=== PATIENT | female | born 1950 | race Caucasian/White ===

== ENCOUNTER 2017-09-25 11:57 | Day surgery (SDC) | payer MEDICARE ==
[2017-09-25] MEDS ORDERED: LACTATED RINGERS 1,000 ML IV ONE (12:20)
[2017-09-25] MEDS ORDERED: MIDAZOLAM 2 MG/2 ML VIAL IVP ONE (13:17)
[2017-09-25] MEDS ORDERED: fentaNYL 250 MCG/5 ML VIAL IVP ONE (13:17)
[2017-09-25 14:18] VITALS: BP 91/59
== END 2017-09-25 11:58 | disposition home or self-care (01) ==
LOC: SDS 11:57
PROVIDERS: ATTEND Surgery
PROC: 0DBL8ZZ Excision of Transverse Colon, Via Natural or Artificial Opening Endoscopic (ICD-10-PCS; 2017-09-25)
PROC: 0DBC8ZZ Excision of Ileocecal Valve, Via Natural or Artificial Opening Endoscopic (ICD-10-PCS; principal; 2017-09-25 13:00)
DX: Z12.11 Encounter for screening for malignant neoplasm of colon (principal); D12.0 Benign neoplasm of cecum; D12.3 Benign neoplasm of transverse colon; K63.89 Other specified diseases of intestine; K57.30 Diverticulosis of large intestine without perforation or abscess without bleeding; K64.8 Other hemorrhoids; I10 Essential (primary) hypertension
CPT/HCPCS: 45380; J3010; J7120

== ENCOUNTER 2018-03-07 16:15 | Outpatient (CLI) | payer MEDICARE ==
--- NOTE | 2018-03-08 08:11 | Mammography Report ---
Reason: SCREENING MAMMO Procedure Date: 03/07/2018 Accession Number: [id number] / [id number] Procedure: KATHY - Screening Mammo w/Charles CPT Code: FULL RESULT: EXAM: Screening Mammo w/Charles DATE: 03/07/2018 4:54 PM CLINICAL HISTORY: Screening encounter. History of 10 years of hormone replacement therapy. History of breast cyst aspiration approximately 30 years prior. TECHNIQUE: Bilateral CC, laterally exaggerated CC, MLO views were obtained. COMPARISON: 10/07/2014 through 06/06/2012. FINDINGS: The breasts demonstrate heterogeneously dense fibroglandular parenchyma bilaterally. There are coarse typically benign calcifications. No suspicious masses, clustered microcalcifications, or regions of architectural distortion are identified. IMPRESSION: Benign findings RECOMMENDATION: Routine annual screening unless otherwise clinically indicated. BIRADS CATEGORY 2: Benign findings STANDARD QUALIFYING STATEMENTS: 1. This examination was not reviewed with the aid of Computer-Aided Detection (CAD). 2. A negative or benign imaging report should not preclude biopsy if clinically suspicious findings are present. 3. Dense breasts may obscure an underlying neoplasm. 4. This examination was reviewed with the aid of 3D breast imaging (tomosynthesis).
== END 2018-03-07 16:16 | disposition home or self-care (01) ==
LOC: DI 16:15
DX: Z12.31 Encounter for screening mammogram for malignant neoplasm of breast (principal)
CPT/HCPCS: 77063; 77067

== ENCOUNTER 2019-03-18 08:01 | Outpatient (CLI) | payer MEDICARE ==
[2019-03-18 08:29] LABS: BASOPHILS # (AUTO) 0.1 10^3/uL (0.0-0.1); BASOPHILS % (AUTO) 1.3 %; EOSINOPHILS # (AUTO) 0.1 10^3/uL (0.0-0.7); EOSINOPHILS % (AUTO) 2.4 %; HGB - HEMOGLOBIN 15.2 g/dL (12.0-16.0); LYMPHOCYTES # (AUTO) 1.7 10^3/uL (1.5-3.5); LYMPHOCYTES % (AUTO) 37.9 %; MEAN CORPUSCULAR HEMOGLOBIN 32.1 pg (27.0-31.0); MEAN CORPUSCULAR HGB CONC 34.2 g/dL (32.0-36.0); MEAN CORPUSCULAR VOLUME 93.9 fL (81.0-99.0); MEAN PLATELET VOLUME 9.4 fL (7.9-10.8); MONOCYTES # (AUTO) 0.4 10^3/uL (0.0-1.0); MONOCYTES % (AUTO) 8.5 %; NEUTROPHILS # (AUTO) 2.3 10^3/uL (1.5-6.6); NEUTROPHILS % (AUTO) 49.5 %; PLT - PLATELET COUNT 194 10^3/uL (130-450); RED BLOOD COUNT 4.73 10^6/uL (4.20-5.40); RED CELL DISTRIBUTION WIDTH 13.3 % (12.0-15.0); WHITE BLOOD COUNT 4.6 x10^3/uL (4.8-10.8)
[2019-03-18 09:04] LABS: ALBUMIN 4.5 g/dL (3.2-5.5); ALBUMIN/GLOBULIN RATIO 1.5 (1.0-2.2); ALKALINE PHOSPHATASE 55 IU/L (42-121); ALT ALANINE AMINOTRANSFERASE 18 IU/L (10-60); AST ASPARTATE AMINOTRANSFERASE 25 IU/L (10-42); BILIRUBIN,TOTAL 0.9 mg/dL (0.2-1.0); BUN - BLOOD UREA NITROGEN 12 mg/dL (6-20); CARBON DIOXIDE - CO2 26 mmol/L (21-32); CHLORIDE 100 mmol/L (101-111); CHOL/HDL RATIO 1.9 (<4.4); CHOLESTEROL 210 mg/dL; CREATININE 0.5 mg/dL (0.4-1.0); GFR - MDRD 122 (>89); GLUCOSE 88 mg/dL (70-100); HDL CHOLESTEROL 108 mg/dL; LDL CHOLESTEROL,CALCULATED 89 mg/dL; LDL/HDL RATIO 0.8 (<4.4); SODIUM 137 mmol/L (135-145); TOTAL PROTEIN 7.6 g/dL (6.7-8.2); VLDL CHOLESTEROL 13 mg/dL
[2019-03-18 09:12] LABS: T4 (THYROXINE) 3.8 ug/dL (6.09-12.23)
[2019-03-18 09:15] LABS: THYROID STIMULATING HORMONE 1.84 uIU/mL (0.34-5.60)
[2019-03-18 09:19] LABS: FREE T4 (FREE THYROXINE) 0.67 ng/dL (0.58-1.64)
== END 2019-03-18 08:02 | disposition home or self-care (01) ==
LOC: LAB 08:01
PROVIDERS: ATTEND Naturopath
DX: E03.9 Hypothyroidism, unspecified (principal); I10 Essential (primary) hypertension
CPT/HCPCS: 36415; 80053; 80061; 81599; 83721; 84436; 84439; 84443; 84479; 85025; 86376

== ENCOUNTER 2021-06-14 16:01 | Emergency (ER) | payer MEDICARE ==
[2021-06-14] MEDS ORDERED: diltiaZEM INJ 5 MG/ML VIAL IVP STA ×2 (16:22→17:12)
--- NOTE | 2021-06-14 16:24 | ED Physician Documentation ---
History of Present Illness - Stated complaint Stated Complaint: ABN HEARTBEAT - Chief complaint Chief Complaint: Cardiac - Additonal information Additional information: 71-year-old female presents emergency department on referral from a local walk- in clinic for evaluation of atrial for both a rapid rate. Patient had gone to the [facility]-in [facility] to establish care. While there they noted she had a heart rate of 124 results and EKG showed atrial flutter with 2 1 conduction. On presentation to the emergency department now she is in atrial fibrillation with a heart rate in the 120s. She is denying chest pain or shortness of air. No syncope or feeling lightheaded. Patient incidentally reports that about 1 month ago after the loss of an aunt and her sister she began having palpitations. She did go to her supervisor [employer] who felt that she had broken heart syndrome and her heart rate was always normal in the office. She has intermittently however continue to have palpitations. Review of Systems Constitutional: reports: Reviewed and negative Ears: reports: Reviewed and negative Nose: reports: Reviewed and negative Throat: reports: Reviewed and negative Cardiac: reports: Palpitations Respiratory: reports: Reviewed and negative GI: reports: Reviewed and negative : reports: Reviewed and negative Skin: reports: Reviewed and negative Musculoskeletal: reports: Reviewed and negative PD PAST MEDICAL HISTORY - Past Medical History Cardiovascular: Hypertension Respiratory: None Endocrine/Autoimmune: HyPOthyroidism GI: None : None HEENT: Chronic vision loss Psych: None Derm: None - Past Surgical History Ortho: Hip replacement HEENT: Tonsil/Adenoidectomy - Present Medications Home Medications: Ambulatory Orders Medication Instructions Recorded Confirmed Astaxanthin 4 mg PO DAILY 09/25/17 09/25/17 Cholecalciferol (Vitamin D3) 1,000 unit PO DAILY 09/25/17 09/25/17 [Vitamin D3] Glucosamine/Chondroitin/C/Rivas 1 each PO DAILY 09/25/17 09/25/17 [Glucosamine-Chondroitin Capsul] Melatonin 10 mg PO DAILY PM 09/25/17 09/25/17 Mv-Mn/Folic Acid/Lutein/Vkm710 1 each PO DAILY 09/25/17 09/25/17 [Efrain Multi For Men Tablet] [place]-3/Dha/Epa/Fish Oil [Fish Oil 1 each PO DAILY 09/25/17 09/25/17 1,000 mg Softgel] Selenimin Tablet 1 tab PO DAILY 09/25/17 Thyroid,Pork [Nature-Throid] 32.5 mg PO DAILY 09/25/17 09/25/17 Ubidecarenone [Co Q-10] 100 mg PO DAILY 09/25/17 09/25/17 Vitamin B Complex 1 each PO DAILY 09/25/17 09/25/17 Vitamin E 200 unit PO DAILY 09/25/17 09/25/17 Rivaroxaban [Xarelto] 20 mg PO DAILY #30 tablet 06/14/21 diltiaZEM CD [Cardizem Cd] 120 mg PO DAILY #30 cap 06/14/21 - Allergies Allergies/Adverse Reactions: Allergies Allergy/AdvReac Type Severity Reaction Status Date / Time Penicillins Allergy Anaphylaxis Verified 06/14/21 16:17 Sulfa (Sulfonamide Allergy Anaphylaxis Verified 06/14/21 16:17 Antibiotics) PD ED PE NORMAL - General General: Alert and oriented X 3, No acute distress, Well developed/nourished - HEENT HEENT: Atraumatic, Ears normal, Moist mucous membranes, Pharynx benign - Neck Neck: Supple, no meningeal sign, No adenopathy, Thyroid normal - Cardiac Cardiac: No murmur, Strong equal pulses. No: RRR (Tachycardic irregularly irregular) - Respiratory Respiratory: No respiratory distress - Abdomen Abdomen: Normal bowel sounds, Soft, Non tender - Back Back: No CVA TTP, No spinal TTP - Derm Derm: Normal color, Warm and dry, No rash - Extremities Extremities: No deformity, No tenderness to palpate, Normal ROM s pain - Neuro Neuro: Alert and oriented X 3, peoplesoft 2-12 intact Eye Opening: To Voice Motor: Obeys Commands Verbal: Oriented GCS Score: 14 - Psych Psych: Normal mood Results - Vitals Vitals: Vital Signs - 24 hr 06/14/21 06/14/21 06/14/21 16:14 16:26 16:53 Temperature 36.6 C Heart Rate 123 H 124 H 119 H Respiratory 33 H 11 L 21 Rate Blood Pressure 158/95 H 158/95 H 131/90 H O2 Saturation 99 98 97 06/14/21 06/14/21 06/14/21 17:48 18:28 18:43 Temperature Heart Rate 106 H 114 H 127 H Respiratory 21 28 H 11 L Rate Blood Pressure 112/80 110/70 103/77 O2 Saturation 96 97 96 06/14/21 06/14/21 19:00 19:27 Temperature 36.6 C Heart Rate 98 98 Respiratory 17 17 Rate Blood Pressure 118/79 118/79 O2 Saturation 97 98 Oxygen O2 Source Room air - EKG (time done) 1612 Rate: Rate (enter#) (123) Rhythm: Atrial fibrillation QRS: Normal Ischemia: ST elevation c/w repol Compare to prior EKG: Old EKG unavailable Computer interpretation: Agree with computer - Labs Labs: Laboratory Tests 06/14/21 06/14/21 06/14/21 16:24 16:24 16:24 WBC 11.2 H RBC 4.26 Hgb 13.6 Hct 40.6 MCV 95.3 MCH 31.9 H MCHC 33.5 RDW 12.0 Plt Count 366 MPV 9.0 Neut # (Auto) 8.1 H Lymph # (Auto) 2.0 Rogers # (Auto) 1.0 Eos # (Auto) 0.0 Baso # (Auto) 0.1 Absolute Nucleated RBC 0.00 Nucleated RBC % 0.0 PT 12.8 H INR 1.2 Sodium 134 L Potassium 4.0 Chloride 96 L Carbon Dioxide 25 Anion Gap 13.0 BUN 10 Creatinine 0.6 Estimated GFR (MDRD) 99 Glucose 110 H Calcium 9.0 Total Bilirubin 0.8 AST 17 ALT 15 Alkaline Phosphatase 73 Troponin I High Sens B-Natriuretic Peptide Total Protein 7.8 Albumin 3.8 Globulin 4.0 Albumin/Globulin Ratio 1.0 Lipase 29 TSH Free T4 06/14/21 06/14/21 06/14/21 16:24 16:24 16:24 WBC RBC Hgb Hct MCV MCH MCHC RDW Plt Count MPV Neut # (Auto) Lymph # (Auto) Rogers # (Auto) Eos # (Auto) Baso # (Auto) Absolute Nucleated RBC Nucleated RBC % PT INR Sodium Potassium Chloride Carbon Dioxide Anion Gap BUN Creatinine Estimated GFR (MDRD) Glucose Calcium Total Bilirubin AST ALT Alkaline Phosphatase Troponin I High Sens 6.5 B-Natriuretic Peptide 481 H Total Protein Albumin Globulin Albumin/Globulin Ratio Lipase TSH 1.66 Free T4 0.94 - Rads (name of study) CXR Radiology: Final report received (Small left pleural effusion and left basilar atelectasis. No pneumothorax) PD MEDICAL DECISION MAKING - ED course Complexity details: reviewed old records, reviewed results, re-evaluated patient, considered differential, d/w patient ED course: 71-year-old female was referred to the emergency department from walk-in clinic for evaluation of tachycardia and findings of atrial fib and atrial flutter. On presentation she is awake well-appearing normotensive. She has atrial for been rate of 120s. She is initially given 10 mg of IV Diltiazem. This briefly dropped her heart rate into the 1 teens. It was then repeated with again a modest reduction to the 1 teens. We then followed up with 5 mg of metoprolol IV. However she was subsequently given 120 orally of diltiazem long-acting. Following this administration her heart rate is consistently in the 90s and low 100s. She has no chest pain. Chest x-ray does show a small left pleural effusion. Her troponin is negative but we do have a modest BNP elevation just over 400. Patient is not dyspneic or hypoxic. No lower extremity swelling. Chest x-ray is not suggestive of volume overload. She does have a CHADS2 score of 3 therefore she would benefit from anticoagulation to reduce the risk of stroke and is given her initial dose of Xarelto here. Did spend a fair amount of time at the bedside discussing the new diagnosis of atrial fibrillation with an elevated BNP, stroke risk reduction and long-term management to include referral to cardiology. Emergent return precautions were discussed for strokelike symptoms, sudden severe chest pain or shortness of air - Critical Care Time(min): 15 Time Includes: Direct patient care, Review records, Family consult for tx dec Data interpretation: Labs, Prior EKG Departure - Departure Disposition: 01 Home, Self Care Clinical Impression: Atrial fibrillation with RVR, Elevated brain natriuretic peptide (BNP) level, Pleural effusion, left Condition: Stable Record reviewed to determine appropriate education?: Yes Instructions: Rivaroxaban oral tablets, Atrial Fibrillation Dc Prescriptions: diltiaZEM CD [Cardizem Cd] 120 mg PO DAILY #30 cap Rivaroxaban [Xarelto] 20 mg PO DAILY #30 tablet Comments: Jennifer you are seen today in the emergency department for atrial fibrillation. It sounds like you have been having it intermittently for much of the last month. Here in the emergency department we gave you multiple IV medications followed by an oral dose of Cardizem in order to get good heart rate control and we seem to have done that. Your chest x-ray does show a small left-sided pleural effusion. Your BNP is mildly elevated at just over 400. This is likely because of the uncontrolled atrial fibrillation over the last month. As we discussed at the bedside the biggest risk for atrial fibrillation is stroke. You are at moderate to high risk for stroke therefore we are making the recommendation that you begin taking the Xarelto every day as prescribed. Your first dose was given here in the emergency department. In order to control your heart rate we have also sent a prescription to the pharmacy for diltiazem. This is a medication that is long-acting and you will take once daily. Xarelto is a medication that helps prevent clots from forming however if you develop any falls, have sudden severe headache, black or bloody stools or uncontrolled bleeding you do need to return to the emergency department for evaluation. If you develop slurred speech, facial droop arm or leg weakness or any other concerning signs such as for stroke then again please return immediately to the ER. Please discuss this ED visit with your primary care provider. You should obtain referral to a earth burner for further outpatient testing and evaluation which could include echocardiogram or stress testing. Discharge Date/Time: 06/14/21 19:27
--- NOTE | 2021-06-14 16:30 | XRAY Report ---
PROCEDURE: Chest 1 View X-Ray INDICATIONS: Chest Pain TECHNIQUE: One view of the chest was acquired. COMPARISON: None. FINDINGS: Surgical changes and devices: None. Lungs and pleura: Small left pleural effusion is seen. Left basilar atelectasis is noted. Right lung is clear. No pneumothorax. Mediastinum: Mediastinal contours appear normal. Heart size is normal. Bones and chest wall: No suspicious bony lesions. Overlying soft tissues appear unremarkable. IMPRESSION: Small left pleural effusion and left basilar atelectasis. No pneumothorax. Reviewed by: Magdaleno Jay MD on 06/14/2021 4:29 PM PDT Approved by: Magdaleno Jay MD on 06/14/2021 4:29 PM PDT Station ID: [id number]
[2021-06-14 16:34] LABS: BASOPHILS # (AUTO) 0.1 10^3/uL (0.0-0.1); BASOPHILS % (AUTO) 0.5 %; EOSINOPHILS % (AUTO) 0.2 %; HCT - HEMATOCRIT 40.6 % (37.0-47.0); HGB - HEMOGLOBIN 13.6 g/dL (12.0-16.0); LYMPHOCYTES % (AUTO) 17.8 %; MEAN CORPUSCULAR HEMOGLOBIN 31.9 pg (27.0-31.0); MEAN CORPUSCULAR HGB CONC 33.5 g/dL (32.0-36.0); MEAN CORPUSCULAR VOLUME 95.3 fL (81.0-99.0); MONOCYTES % (AUTO) 8.9 %; NEUTROPHILS # (AUTO) 8.1 10^3/uL (1.5-6.6); NEUTROPHILS % (AUTO) 72.1 %; PLT - PLATELET COUNT 366 10^3/uL (130-450); RED BLOOD COUNT 4.26 10^6/uL (4.20-5.40); WHITE BLOOD COUNT 11.2 x10^3/uL (4.8-10.8)
[2021-06-14 16:36] LABS: INR 1.2 (0.8-1.2); PT - PROTHROMBIN TIME 12.8 secs (9.9-12.6)
[2021-06-14 16:55] LABS: ALBUMIN 3.8 g/dL (3.2-5.5); BILIRUBIN,TOTAL 0.8 mg/dL (0.2-1.0); CREATININE 0.6 mg/dL (0.4-1.0); TOTAL PROTEIN 7.8 g/dL (6.7-8.2)
[2021-06-14 17:14] LABS: THYROID STIMULATING HORMONE 1.66 uIU/mL (0.34-5.60)
[2021-06-14 17:16] LABS: FREE T4 (FREE THYROXINE) 0.94 ng/dL (0.58-1.64)
[2021-06-14] MEDS ORDERED: METOPROLOL 5 MG/5 ML VIAL IVP STA (18:00)
[2021-06-14] MEDS ORDERED: diltiaZEM CD 120 MG CAPSULE PO STA (18:27)
[2021-06-14] MEDS ORDERED: RIVAROXABAN 15 MG TABLET PO STA (18:31)
[2021-06-14 19:05] VITALS: BP 118/79
== END 2021-06-14 19:27 | disposition home or self-care (01) ==
LOC: ED 16:01
DX: I48.20 Chronic atrial fibrillation, unspecified (principal); R79.89 Other specified abnormal findings of blood chemistry; I10 Essential (primary) hypertension
CPT/HCPCS: 36415; 71045; 80053; 83690; 83880; 84439; 84443; 84484; 85025; 85610; 93005; 96374; 96375; 96376; 99283; 99284; A9270

== ENCOUNTER 2021-07-08 08:00 | Outpatient (CLI) | payer MEDICARE ==
--- NOTE | 2021-07-08 14:22 | XRAY Report ---
PROCEDURE: Chest 2 View X-Ray INDICATIONS: PLEURAL EFFUSION TECHNIQUE: 2 view(s) of the chest. COMPARISON: Single view the chest dated 06/14/2021 FINDINGS: Surgical changes and devices: None. Lungs and pleura: There is a decreased left pleural effusion when compared with the prior study keya ed 06/14/2021. There is trace one thing at the left costophrenic sulcus. There is likely a small right pleural effusion which is new when compared with the prior study. Mediastinum: Mediastinal contours are normal. Heart size is normal. Bones and chest wall: No suspicious bony abnormalities. Soft tissues appear unremarkable. IMPRESSION: 1. Marked decrease in the size of the left pleural effusion. 2. Trace right pleural effusion which is likely new. Reviewed by: Sari Tejeda MD on 07/08/2021 2:20 PM PDT Approved by: Sari Tejeda MD on 07/08/2021 2:20 PM PDT Station ID: [id number]
== END 2021-07-08 23:59 | disposition home or self-care (01) ==
LOC: DI.S 08:00
PROVIDERS: ATTEND Registered Nurse
DX: J90 Pleural effusion, not elsewhere classified (principal)

== ENCOUNTER 2023-04-27 07:22 | Day surgery (SDC) | payer MEDICARE ==
[2023-04-27] MEDS: LACTATED RINGERS 1,000 ML IV ONE (08:09)
[2023-04-27] MEDS ORDERED: BRIMONIDINE 0.2% OPHTH DROPS 5 ML ONE (08:19)
[2023-04-27] MEDS ORDERED: EPINEPHrine 1 MG/ML AMP ONE (08:19)
[2023-04-27] MEDS ORDERED: TIMOLOL 0.5% OPHTH DROPS ONE (08:19)
[2023-04-27] MEDS ORDERED: TRIAMCIN/MOXIFLOX OPHTHALMIC 0.6 ML VIAL IO ONE (08:19)
[2023-04-27] MEDS ORDERED: BSS/LIDOCAINE/EPINEPHRINE 1 ML VIAL ONE (08:20)
--- NOTE | 2023-04-27 08:26 | ANESTHESIA ---
Pre-Anesthesia VS, & Labs - Diagnosis left eye senile combined cataract - Procedure left eye cataract extraction with IOL implant Vital Signs: Temp Pulse Resp BP Pulse Ox O2 Flow Rate 36.4 C L 70 12 124/71 100 04/27/23 07:49 04/27/23 07:49 04/27/23 07:49 04/27/23 07:49 04/27/23 07:49 Height: 5 ft 5 in Weight (kg): 73 kg Body Mass Index: 26.7 BMI Classification: Overweight - NPO >8 hours - Is Patient ?: No Home Medications and Allergies Astaxanthin 4 mg PO DAILY 09/25/17 Cholecalciferol (Vitamin D3) [Vitamin D3] 1,000 unit PO DAILY 09/25/17 Glucosamine/Chondroitin/C/Rivas [Glucosamine-Chondroitin Capsul] 1 each PO DAILY 09/25/17 Melatonin 10 mg PO DAILY PM 09/25/17 Mv-Mn/Folic Acid/Lutein/Vhs019 [Efrain Multi For Men Tablet] 1 each PO DAILY 09/25/17 [place]-3/Dha/Epa/Fish Oil [Fish Oil 1,000 mg Softgel] 1 each PO DAILY 09/25/17 Selenimin Tablet 1 tab PO DAILY 09/25/17 Thyroid,Pork [Nature-Throid] 32.5 mg PO DAILY 09/25/17 Vitamin B Complex 1 each PO DAILY 09/25/17 Vitamin E 200 unit PO DAILY 09/25/17 Aspirin [[place]] 81 mg PO DAILY 04/12/23 Metoprolol Tartrate [Lopressor] 12 mg PO DAILY 04/12/23 Allergies/Adverse Reactions: Allergies Allergy/AdvReac Type Severity Reaction Status Date / Time Penicillins Allergy Anaphylaxis Verified 06/14/21 16:17 Sulfa (Sulfonamide Allergy Anaphylaxis Verified 06/14/21 16:17 Antibiotics) Anes History & Medical History - Anesthetic History Anesthesia Complications: reports: No previous complications - Medical History Cardiovascular: reports: Hypertension, Atrial fibrillation (history of, currently SR) Pulmonary: reports: None Gastrointestinal: reports: None Urinary: reports: None Neuro: reports: None Endocrine/Autoimmune: reports: HyPOthyroidism Skin: reports: None Smoking Status: Never smoker Psychosocial: reports: Alcohol (daily 2 glasses) History of Cancer?: No - Surgical History Eyes Ears Nose Throat (EENT): reports: Tonsil/Adenoidectomy Orthopedic: reports: Hip replacement Exam General: Alert, Oriented x3, Cooperative, No acute distress Dental: WNL Mouth Openin Fingerbreadth Neck Mobility: Normal Mallampati classification: II Thyromental Distance: less than 4 cm Mental/Cognitive Status: Alert/Oriented X3, Normal for patient Plan Anesthesia Type: MAC Consent for Procedure(s) Verified and Reviewed: Yes Code Status: Attempt Resuscitation ASA classification: 2-Mild systemic disease Is this case an emergency?: No
[2023-04-27] MEDS: BRIMONIDINE 0.2% OPHTH DROPS 5 ML OPTH ONE (09:00)
[2023-04-27] MEDS: EPINEPHrine 1 MG/ML AMP IR ONE (09:01)
[2023-04-27] MEDS: BSS/LIDOCAINE/EPINEPHRINE 1 ML SYRINGE IO ONE (09:01)
[2023-04-27] MEDS: TIMOLOL 0.5% OPHTH DROPS OPTH ONE (09:01)
[2023-04-27] MEDS: PROPARACAINE 0.5% OPHTH DROPS 15 ML EACHEYE ONE (09:02)
[2023-04-27] MEDS: VANCOMYCIN OPHTH (TOPICAL) 10 MG/ML SYRINGE TOP ONE (09:02)
[2023-04-27] MEDS: TRIAMCIN/MOXIFLOX OPHTHALMIC 0.6 ML VIAL IO ONE (09:02)
[2023-04-27] MEDS: LACTATED RINGERS 900 ML IV ONE ×2 (09:11→10:09)
[2023-04-27 09:23] VITALS: O2SAT 97
--- NOTE | 2023-04-27 09:24 | OPERATIVE REPORT ---
Operative Report - Other Other Information/Narrative: Date of Surgery: 04/27/23 Preop Dx: Visually significant cataract left eye. This was the first cataract surgery. Postop Dx: Same Procedure: Phacoemulsification with posterior chamber toric intraocular lens implant left eye Surgeon: Dr. Phillip Hilton Anesthesia: Monitored anesthesia care Complications: None Operative Indications: This is a 73-year-old F with progressive vision loss in the left eye due to 2+ nuclear sclerotic and vacuolar cataract. Best corrected visual acuity was 20/50 with glare to 20/400 vision in the left eye. Indications for surgery were: - Overall decrease in vision - Difficulty seeing words on a computer screen - Difficulty reading - Difficulty seeing words, closed captions, or game scores on TV - Difficulty seeing street signs The patient was consented at length concerning the risks and benefits of cataract surgery after which the patient expressed a desire to proceed with surgery. Operative Procedure: The patients cornea was marked in the pre-surgical area to indicate the axis for the toric intraocular lens. The patient was taken into OR#3 and placed under monitored anesthesia care. A surgical time-out was conducted confirming correct patient, correct procedure, and correct surgical site. The patient was given topical anesthesia and then prepped and draped in the usual sterile fashion. The eye was entered at the 6 and 3 oclock positions. Intracameral Shugarcaine was injected into the anterior chamber followed by a dispersive viscoelastic. A continuous-tear curvilinear capsulorhexis was performed. The nucleus was hydrodissected and phacoemulsified. The cortex was evacuated using automated infusion and aspiration. A cohesive viscoelastic was injected into the capsular bag and a 20.5 diopter toric intraocular lens was inserted into the bag and rotated to axis 134. Infusion and aspiration were used to evacuate the viscoelastic materials from the eye and the IOL was verified to remain on axis. The wounds were hydrated and the eye inflated to physiologic pressure using balanced salt solution. Approximately 0.25ml of a mixture of triamcinolone and moxifloxacin was injected trans- sclerally into the vitreous in the inferotemporal quadrant using a 30 gauge cannula. An additional 0.25ml of a mixture of triamcinolone and moxifloxacin was injected subconjunctivally in the superior quadrant for infection and inflammation prophylaxis. Wound integrity was checked with Weck-Abena sponges and the IOL axis was once again verified to be on the correct axis. The patient was taken from the operating room in good condition and given post-op instructions.
[2023-04-27 09:43] VITALS: BP 91/52
--- NOTE | 2023-04-27 15:43 | ANESTHESIA POST OP EVALUATION ---
Anesthesia Post Eval - Post Anesthesia Eval Vitals: Last Vital Signs Temp 36.3 C L 04/27/23 09:39 Pulse 70 04/27/23 09:39 Resp 16 04/27/23 09:39 BP 91/52 L 04/27/23 09:39 Pulse Ox 97 04/27/23 09:39 O2 Flow Rate CV Function Including HR & BP: Stable Pain Control: Satisfactory Nausea & Vomiting: Negative Mental Status: Baseline Respiratory Status: Airway Patent Hydration Status: Satisfactory Anesthesia Complications: None
== END 2023-04-27 07:23 | disposition home or self-care (01) ==
LOC: SDS 07:22
PROVIDERS: ATTEND Ophthalmology
DX: H25.812 Combined forms of age-related cataract, left eye (principal); R25.1 Tremor, unspecified; E03.9 Hypothyroidism, unspecified
CPT/HCPCS: 66984; A9270; J7120; V2632; V2787

== ENCOUNTER 2023-06-01 07:51 | Day surgery (SDC) | payer MEDICARE ==
[2023-06-01] MEDS: LACTATED RINGERS 1,000 ML IV ONE (08:14)
[2023-06-01] MEDS: PHENYLEPHRINE 2.5% OPHTH 2 ML DROPS ONE (08:17)
[2023-06-01] MEDS: KETOROLAC 0.45% OPHTH DROPS ONE (08:17)
[2023-06-01] MEDS: PROPARACAINE 0.5% OPHTH DROPS 15 ML ONE (08:17)
--- NOTE | 2023-06-01 08:46 | ANESTHESIA ---
Pre-Anesthesia VS, & Labs - Diagnosis right cataract - Procedure right cataract extraction with IOL Vital Signs: Temp Pulse Resp BP Pulse Ox O2 Flow Rate 36.6 C 68 16 116/78 100 06/01/23 08:18 06/01/23 08:18 06/01/23 08:18 06/01/23 08:18 06/01/23 08:18 Height: 5 ft 5 in Weight (kg): 69.3 kg Body Mass Index: 25.4 BMI Classification: Overweight - NPO >8 hours - Is Patient ?: No Home Medications and Allergies Home Medications: Ambulatory Orders Losartan Potassium 25 mg PO DAILY 05/31/23 Thyroid,Pork [[place] Thyroid] 60 mg PO DAILY 05/31/23 Turmeric 400 mg PO DAILY 05/31/23 Astaxanthin 4 mg PO DAILY 09/25/17 Cholecalciferol (Vitamin D3) [Vitamin D3] 1,000 unit PO DAILY 09/25/17 Melatonin 10 mg PO DAILY PM 09/25/17 Aspirin [[place]az[place]] 325 mg PO DAILY 04/12/23 Metoprolol Tartrate [Lopressor] 12.5 mg PO BID 04/12/23 Losartan Potassium 25 mg PO DAILY 05/31/23 Thyroid,Pork [[place] Thyroid] 60 mg PO DAILY 05/31/23 Turmeric 400 mg PO DAILY 05/31/23 Allergies/Adverse Reactions: Allergies Allergy/AdvReac Type Severity Reaction Status Date / Time Penicillins AdvReac Rash Verified 06/01/23 08:25 Sulfa (Sulfonamide AdvReac Rash Verified 06/01/23 08:25 Antibiotics) Anes History & Medical History - Anesthetic History Anesthesia Complications: reports: No previous complications - Medical History Cardiovascular: reports: Hypertension, Atrial fibrillation Pulmonary: reports: None Gastrointestinal: reports: None Urinary: reports: None Neuro: reports: None Musculoskeletal: reports: None Endocrine/Autoimmune: reports: HyPOthyroidism Skin: reports: None Smoking Status: Never smoker Psychosocial: reports: Alcohol (2 glasses of wine nightly) - Surgical History Eyes Ears Nose Throat (EENT): reports: Cataracts, Tonsil/Adenoidectomy Orthopedic: reports: Hip replacement Exam General: Alert Dental: WNL Mouth Opening: Greater than 4 Fingerbreadths Neck Mobility: Normal Mallampati classification: III Thyromental Distance: greater than 6 cm Respiratory: Lungs clear Cardiovascular: Regular rate, Normal S1, Normal S2 Plan Anesthesia Type: MAC Consent for Procedure(s) Verified and Reviewed: Yes Code Status: Attempt Resuscitation ASA classification: 2-Mild systemic disease Is this case an emergency?: No
[2023-06-01] MEDS ORDERED: BRIMONIDINE 0.2% OPHTH DROPS 5 ML ONE (08:52)
[2023-06-01] MEDS ORDERED: TRIAMCIN/MOXIFLOX OPHTHALMIC 0.6 ML VIAL IO ONE (08:52)
[2023-06-01] MEDS ORDERED: EPINEPHrine 1 MG/ML AMP ONE (08:52)
[2023-06-01] MEDS ORDERED: BSS/LIDOCAINE/EPINEPHRINE 1 ML VIAL ONE (08:52)
[2023-06-01] MEDS ORDERED: TIMOLOL 0.5% OPHTH DROPS ONE (08:52)
[2023-06-01] MEDS: EPINEPHrine 1 MG/ML AMP IR ONE (09:05)
[2023-06-01] MEDS: TIMOLOL 0.5% OPHTH DROPS OPTH ONE (09:05)
[2023-06-01] MEDS: BRIMONIDINE 0.2% OPHTH DROPS 5 ML OPTH ONE (09:05)
[2023-06-01] MEDS: VANCOMYCIN OPHTH (TOPICAL) 10 MG/ML SYRINGE TOP ONE (09:09)
[2023-06-01] MEDS: TRIAMCIN/MOXIFLOX OPHTHALMIC 0.6 ML VIAL IO ONE (09:09)
[2023-06-01] MEDS: PROPARACAINE 0.5% OPHTH DROPS 15 ML EACHEYE ONE (09:09)
[2023-06-01] MEDS: BSS/LIDOCAINE/EPINEPHRINE 1 ML SYRINGE IO ONE (09:09)
--- NOTE | 2023-06-01 09:43 | OPERATIVE REPORT ---
Operative Report - Other Other Information/Narrative: Date of Surgery: 06/01/23 Preop Dx: Visually significant cataract right eye. Cataract surgery was performed in the left eye on [id number]. Postop Dx: Same Procedure: Phacoemulsification with posterior chamber intraocular lens implant right eye Surgeon: Dr. Phillip Hilton Anesthesia: Monitored anesthesia care Complications: None Operative Indications: This is a 73-year-old F with progressive vision loss in the right eye due to 2+ nuclear sclerotic, 1+ cortical, and trace posterior subcapsular cataract. Best corrected visual acuity was 20/25 with glare to 20/125 vision in the right eye. Indications for surgery were: - Overall decrease in vision - Difficulty seeing words on a computer screen - Difficulty reading - Difficulty seeing words, closed captions, or game scores on TV - Difficulty seeing street signs The patient was consented at length concerning the risks and benefits of cataract surgery after which the patient expressed a desire to proceed with surgery. Operative Procedure: The patient was taken into OR#3 and placed under monitored anesthesia care. A surgical time-out was conducted confirming correct patient, correct procedure, and correct surgical site. The patient was given topical anesthesia and then prepped and draped in the usual sterile fashion. The eye was entered at the 6 and 3 oclock positions. Intracameral Shugarcaine was injected into the anterior chamber followed by a dispersive viscoelastic. A continuous-tear curvilinear capsulorhexis was performed. The nucleus was h ydrodissected and phacoemulsified. The cortex was evacuated using automated infusion and aspiration. A cohesive viscoelastic was injected into the capsular bag and a 22.0 diopter intraocular lens was inserted into the bag. Infusion and aspiration were used to evacuate the viscoelastic materials from the eye. The wounds were hydrated and the eye inflated to physiologic pressure using balanced salt solution. Approximately 0.25ml of a mixture of triamcinolone and moxifloxacin was injected trans-sclerally into the vitreous in the inferotemporal quadrant using a 30 gauge cannula. An additional 0.25ml of a mixture of triamcinolone and moxifloxacin was injected subconjunctivally in the superior quadrant for infection and inflammation prophylaxis. Wound integrity was checked with Weck-Abena sponges. The patient was taken from the operating room in good condition and given post-op instructions.
--- NOTE | 2023-06-01 09:50 | ANESTHESIA POST OP EVALUATION ---
Anesthesia Post Eval - Post Anesthesia Eval Vitals: Last Vital Signs Temp 36.5 C 06/01/23 09:46 Pulse 71 06/01/23 09:46 Resp 16 06/01/23 09:46 BP 116/75 06/01/23 09:46 Pulse Ox 93 06/01/23 09:46 O2 Flow Rate CV Function Including HR & BP: Stable Pain Control: Satisfactory Nausea & Vomiting: Negative Mental Status: Baseline Respiratory Status: Airway Patent Hydration Status: Satisfactory Anesthesia Complications: None
[2023-06-01 10:11] VITALS: BP 103/63; O2SAT 94
== END 2023-06-01 07:52 | disposition home or self-care (01) ==
LOC: SDS 07:51
PROVIDERS: ATTEND Ophthalmology
DX: H25.811 Combined forms of age-related cataract, right eye (principal); I10 Essential (primary) hypertension
CPT/HCPCS: 66984; A9270; J3490; J7120